=== PATIENT | male | born 1970 | race African-American/Black ===

== ENCOUNTER 2023-05-22 12:28 | Emergency (ER) | payer OTHER, SELFPAY ==
[2023-05-22 12:38] VITALS: BP 136/90; PULSE 74; RESP 20; TEMP 36.7; O2SAT 98
--- NOTE | 2023-05-22 12:45 | ED.SKABFB ---
HPI - Skin/Abscess/Foreign Bdy General Chief complaint: Skin/Abscess/Foreign Body Stated complaint: Rash Source: patient and RN notes reviewed History of Present Illness HPI narrative: 52 yo M presents to urgent care [facility] complaints of an itchy rash since yesterday. Pt states this started yesterday after clearing weeds off a fence yesterday. Pt states he first noticed it on his face and states it's on his right upper leg and bilateral arms. 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 Denies any fevers, chills, vomiting, chest pain, or SOB. Related Data Home Medications Medication Instructions Recorded Confirmed amlodipine 10 mg tablet 10 mg PO DAILY 05/22/23 05/22/23 atorvastatin 10 mg tablet 10 mg PO QHS 05/22/23 05/22/23 losartan 25 mg tablet 25 mg PO DAILY 05/22/23 05/22/23 rosuvastatin 5 mg tablet 5 mg PO DAILY 05/22/23 05/22/23 Allergies Allergy/AdvReac Type Severity Reaction Status Date / Time No Known Allergies Allergy Mild Verified 05/22/23 12:42 Review of Systems Review of Systems: CONSTITUTIONAL: Denies fever, chills, or sweats. EYES: Denies visual changes, redness, or discharge. ENT: Denies otalgia and sore throat CARDIOVASCULAR: Denies chest pain, palpitations, or edema. RESPIRATORY: Denies cough or dyspnea. GASTROINTESTINAL: Denies abdominal pain, nausea, vomiting, or diarrhea. GENITOURINARY: Denies dysuria or hematuria. SKIN: Itchy rash MUSCULOSKELETAL: Denies back pain, joint pain, or myalgia. NEUROLOGIC: Denies headache, numbness, or weakness. Pertinent positives per HPI. PMFSH Comments At the time of my signature, I reviewed and agree with the nursing past medical, surgical, social, and family history. There is no relevant family history pertinent to the patient complaint. Exam Narrative: GENERAL: This is a well-nourished, well-developed patient, in no apparent distress. HEAD: normocephalic, atraumatic. EYES: Sclera clear/white. Vision is grossly intact. EARS: External ears normal, auditory canals clear and without drainage. Hearing grossly intact. NOSE: External nose normal with no obvious nasal discharge, nares without redness, no rhinorrhea. THROAT: Mucous membranes moist, posterior pharynx clear. NECK: Neck supple, non-tender without lymphadenopathy, masses or thyromegaly. CARDIOVASCULAR: Regular rate RESPIRATORY: No respiratory distress SKIN: Erythemic papules and patches noted to bilateral face and bilateral forearms. NEURO: awake, alert, and oriented to person, place and time. There were no obvious focal neurologic abnormalities. Course Course Level of Care: Express Care Visit Vital Signs Vital signs: Reviewed MDM - Skin/Abscess/Foreign Bdy MDM Narrative Medical decision making narrative: Prevention is always better than treatment. Learn to identify poison tanya, oak, and sumac and avoid it. Wear long sleeves, long pants, shoes, and socks. If you touched the plant, try to keep your hands away from your eyes, mouth, and face. Wash the skin thoroughly with soap and cool water as soon as possible. Scrub under the fingernails with a brush to prevent spreading of the resin to other parts of the body by touching or scratching. Remember to wash any clothing with soap and hot water as the resin can persist for many months and cause further dermatitis. Use calamine lotion on the affect area. IF symptoms get worse to follow up with your primary care provider or seek ER visit if you developing difficulty breathing, weakness, dizziness. Differential Diagnosis Differential diagnosis: Likely viral exanthem, urticaria and contact dermatitis Critical Care Time Critical Care Time Critical Care Time: No Discharge Plan Discharge Clinical Impression: Contact dermatitis Qualifiers: Contact dermatitis type: unspecified Contact dermatitis trigger: unspecified trigger Qualified Code(s): L25.9 - Unspecified contact dermatitis, unspecified cause Patient Disposition: Home, Self-Care Condi
== END 2023-05-22 12:51 | disposition home or self-care (01) ==
PROVIDERS: Emergency Provider Nurse Practitioner Family
DX: L25.9 Unspecified contact dermatitis, unspecified cause (principal); E78.00 Pure hypercholesterolemia, unspecified; I10 Essential (primary) hypertension
CPT/HCPCS: 99213; G0463

== ENCOUNTER 2023-06-11 10:00 | Outpatient (CLI) | payer OTHER, SELFPAY ==
--- NOTE | 2023-06-11 10:49 | ECG_ITS ---
Measurements Intervals [place] Rate: 65 P: 45 MN: 179 QRS: 7 QRSD: 85 T: -4 QT: 358 QTc: 374 Interpretive Statements SINUS RHYTHM CANNOT RULE OUT SEPTAL INFARCT, AGE INDETERMINATE BORDERLINE ST-T WAVE ABNORMALITY- INFERIOR LEADS ABNORMAL ECG NO PREVIOUS ECG AVAILABLE FOR COMPARISON Electronically Signed On 06-11-2023 11:33:35 CDT by Miko Shabazz D.O.
[2023-06-11 11:23] LABS: Basophils Percent Auto 0.6 % (0.2-1.2); Eosinophils Absolute Auto 0.2 K/mm3 (0-0.3); Eosinophils Percent Auto 2.2 % (0-4.4); Hematocrit 48.8 % (42.0-52.0); Hemoglobin 16.2 g/dL (14.0-18.0); Immature Granulocyte Absolute 0.02 K/mm3 (0.00-0.031); Immature Granulocyte Percent A 0.3 % (0-0.5); Lymphocytes Absolute Auto 1.46 K/mm3 (0.9-3.2); Lymphocytes Percent Auto 21.1 % (18.3-44.2); Mean Corpuscular HGB Conc 33.2 g/dl (32-36); Mean Corpuscular Hemoglobin 28.3 pg (26-34); Mean Corpuscular Volume 85.2 fl (80-100); Mean Platelet Volume 9.7 fl (7.4-10.4); Monocytes Absolute Auto 0.4 K/mm3 (0.1-0.6); Monocytes Percent Auto 5.9 % (2.6-8.5); Neutrophils Absolute Auto 4.9 K/mm3 (1.3-6.7); Neutrophils Percent Auto 69.9 % (45.5-73.1); Platelet Count Result 258 k/mm3 (150-375); Red Blood Count 5.73 M/mm3 (4.6-6.20); Red Cell Distribution Width 12.7 % (11.5-14.5); White Blood Count 6.9 K/mm3 (4.5-10.0)
[2023-06-11 11:28] LABS: Anion Gap 6 mmol/L (8-16); Blood Urea Nitrogen 6 mg/dL (9-20); Carbon Dioxide 31 mmol/L (22-30); Chloride 103 mmol/L (98-107); Potassium 4.3 mmol/L (3.4-5.0); Prothrombin Time 13.2 Seconds (11.1-14.7); Sodium 140 mmol/L (137-145)
[2023-06-11 11:29] LABS: Alanine Aminotransferase 34 U/L (6-50); Albumin Level 4.3 g/dL (3.5-5.1); Alkaline Phosphatase 70 U/L (38-126); Aspartate Amino Transferase 29 U/L (17-59); Calcium 9.2 mg/dL (8.4-10.2); Estimated Glomerular Filt Rate > 60; Glucose 106 mg/dL (65-110); Partial Thromboplastin Time 27.3 SECONDS (22.3-36.8)
== END 2023-06-11 10:01 | disposition home or self-care (01) ==
LOC: ANHSURGERY 10:05
PROVIDERS: Visit Provider Urology
DX: Z01.812 Encounter for preprocedural laboratory examination (principal); Z01.810 Encounter for preprocedural cardiovascular examination; C61 Malignant neoplasm of prostate; R94.31 Abnormal electrocardiogram [ECG] [EKG]
CPT/HCPCS: 36415; 80053; 85025; 85610; 85730; 86850; 86900; 86901; 87086; 93005

== ENCOUNTER 2023-06-19 00:28 | Day surgery (SDC) | payer OTHER, SELFPAY ==
[2023-06-11 09:37] VITALS: BP 132/86; PULSE 62; RESP 20; TEMP 36.7; O2SAT 97; BMI 34.9
--- NOTE | 2023-06-11 09:38 | PC.NURSE ---
PRE-OP INSTRUCTIONS, PLEASE READ CAREFULLY Report to the Outpatient Waiting Room, entrance under the green pavilion located off [facility], at time _0600_ on date _06/19/23_. Planned Procedure Time: _0730_. PACK A SMALL OVERNIGHT BAG AND LEAVE IN THE CAR Time changes happen often and if your time is changed the preop area will call you the afternoon before. - You and your visitor will be asked to self-screen and do not enter if you have any COVID symptoms. - A mask is optional within the hospital at this time. -VISITING HOURS 8AM-8PM Patients may have clear liquids (water, carbonated beverages, clear teas, apple juice) until 3 hours prior to surgery (0430 AM) with a maximum of 20 ounces. - No food from midnight until time of surgery Take the following medications with a SIP of water the morning of surgery: _NONE_ DO NOT STOP ANY OF YOUR OTHER PRESCRIPTION MEDICATIONS PRIOR TO SURGERY ?EXCEPT THE FOLLOWING Medications to discontinue per physician ___NONE____, Date to take last dose Please no make-up, nail lao, hairspray, perfume, deodorant, or body powder the day of surgery. No jewelry (including any body piercings) or valuables the day of surgery, leave them at home. Please take a shower or bath the night before, or the morning of, surgery with an antibacterial soap. Wear comfortable, loose fitting clothing. - Jewelry must be removed prior to entering the operating room. Rings and piercings that are not removed may be cut off. - The hospital will not accept responsibility for valuables. - Please leave all valuables, including medications, at home the day of surgery. If you are going home after surgery, a licensed cement truck driver must drive you home. - NO public transportation without another adult if you receive anesthesia. - We recommend that an adult stay with you for 24 hours following discharge. - We also recommend that you do not drive, make important decision, drink alcoholic beverages, or take any drugs that were not prescribed by your health care provider for at least 24 hours after your discharge time. Follow any additional instructions given to you from your surgeon. If you or anyone in your household have experienced Covid symptoms in the past week, please notify your surgeon or the nurse liaison at the phone number below for possible testing. Instructions given to _PATIENT & SPOUSE_and asked if any additional questions and then verbalized understanding. Patient advised to call surgeon office or pre surgery nurse liaison [phone] if any additional questions.
[2023-06-19] VITALS (16 sets, daily range): BP systolic 126–194; BP diastolic 75–130; PULSE 65–94; RESP 14–20; TEMP 36.6–37.8; O2SAT 92–100
--- NOTE | 2023-06-19 06:43 | P.PNAN_ITS ---
Anes - Initial Pre Proc Eval Procedure: Operation Date: 06/19/23 07:30 Proposed Procedures p Robotic Assisted Nerve Sparing Prostatectomy, Possible Bilateral Pelvic Lymph Node Dissection - Miguel Ángel Delong MD Date/Time: 06/19/23 06:43 Surgeon: Miguel Ángel Delong MD Pre Op Diagnosis: prostate cancer Patient Data Age: 52 Gender: M Height: 1.75 m Weight: 107.4 kg Last Vital Signs Temp 36.7 C 06/11/23 09:37 Pulse 62 06/11/23 09:37 Resp 20 06/11/23 09:37 BP 132/86 06/11/23 09:37 Pulse Ox 97 06/11/23 09:37 O2 Del Method Room Air 06/11/23 09:37 Allergies Allergy/AdvReac Type Severity Reaction Status Date / Time No Known Allergies Allergy Mild Verified 06/19/23 07:02 Home Medications Medication Instructions Recorded Confirmed Type amlodipine 10 mg tablet 10 mg PO HS 05/22/23 06/19/23 History losartan 25 mg tablet 25 mg PO HS 05/22/23 06/19/23 History rosuvastatin 5 mg tablet (Crestor) 5 mg PO HS 05/22/23 06/19/23 History Patient hx anesthesia problems: none Family hx anesthesia problems: none Results Review: All pre-operative results and documents have been reviewed as part of the pre- operative evaluation. [facility] Past Medical History Medical History (Updated 06/20/23 @ 07:54 by Miguel Ángel Delong MD) Hyperlipidemia Hypertension Prostate cancer Social History Social History Smoking status: Never smoker Second hand tobacco smoke exposure: No Alcohol intake: current Alcohol use details: 4/WEEK OR ABOUT 20/MONTH Substance use: never Substance use type: does not use Living arrangements: with family Spiritual care concerns: No Anes - Eval Final PreProcedure Day of Procedure 06/19/23 06:43 Patient weight: obese Heart: regular rate and rhythm Lungs: clear to auscultation Airway: Mallampati scale class II Neurological: alert and oriented Last oral intake: >/= 8 hours ASA classification: III Emergent: no Anesthetic plan: proceed Anesthesia type and monitoring: general ETT and standard monitoring Results Review: All pre-operative results and documents have been reviewed as part of the pre- operative evaluation. Informed Consent: The patient's anesthetic plan and its attendant risks and benefits were discussed with the patient/family/POA. Questions were solicited and answers provided to the satisfaction of the patient/family/POA.
[2023-06-19] MEDS: LACTATED RINGERS 1,000 ML 30 ML IV CONT ×3 (06:58→13:32)
--- NOTE | 2023-06-19 07:18 | WPDHPUPDATE1 ---
History and Physical Update Update Date/Time: 06/19/23 07:18 History and Physical has been reviewed, including an updated exam of the patient. There are NO changes in the patient's condition. Risks, benefits, and alternatives have been discussed and questions answered. Patient agrees to proceed with procedure. Proceed with robotic assist nerve sparing prostatectomy with possible plnd
[2023-06-19] MEDS: ceFAZolin 2 GM/D5W 50 ML 2 GM/50 ML BAG IVPB (07:33)
[2023-06-19] MEDS: BUPivacaine HCL 0.5% 10 ML AMP 20 ML INFILTRATE (08:12)
[2023-06-19] MEDS: ceFAZolin SODIUM 1 GM VIAL IV PUSH (11:40)
--- NOTE | 2023-06-19 12:15 | P.OP_ITS ---
Procedure Note - Detailed Date of Procedure 06/19/23 Pre-op Diagnosis prostate cancer Post-op Diagnosis Same Procedure Performed Robotic assisted nerve-sparing prostatectomy with left pelvic lymph node dissection Surgeon Miguel Ángel Delong MD Anesthesia General Description of Procedure Patient is taken to the operative suite correctly identified. Once anesthesia was obtained was placed in the dorsal lithotomy position and prepped and draped usual sterile fashion. Supraumbilical incision was made. He does have a umbilical hernia. We did a cutdown entered the peritoneal cavity. Mancera trocar was then placed and secured. The abdomen was insufflated to 15 mmHg pressure. Camera was placed. Appropriate working ports were placed in their locations. The robot was docked after the patient was placed in steep Trendelenburg position. I should state that a 16 Indonesian Sullivan with 20 cc was placed in the balloon prior to initiating procedure. Posterior approach was then taken down. We did have to take down some adhesions of the sigmoid colon and the appendix. Seminal vesicles were dissected down their entirety. Vas is were transected. Plane between the prostate and rectum was developed. Bladder was then taken down in a standard fashion. Space of Retzius was developed. Puboprostatic were incised. Dorsal venous complex was isolated using 0 Vicryl and secured to the pubic bone. Bladder neck sparing procedure was then performed. Bilateral nerve-sparing was also performed. Pedicles were clipped. Urethra was transected after the dorsal venous complex was transected. He had a nice urethral stump. Specimen was placed in an Endo-Catch bag. Left pelvic needed lymph node dissection was then performed with the standard boundaries being the obturator nerve, external iliac vein, Azam's ligament, and bifurcation of the vessels. Clips were placed proximally and distally. Specimen was also placed in an Endo-Catch bag. A Norberto stitch was then placed. Bladder neck was then anastomosed to the urethral stump. V lock suture was used in a running fashion. ANSELMO drain was placed through the 4th arm port site. Surgicel was placed in left obturator fossa. All lap count needle count sponge counts were correct. Robot was undocked. Specimen was then brought out through the midline incision. Midline incision was closed using 0 Vicryl in running fashion. Subcuticular stitches were placed after the skin was anesthetized with 1% lidocaine. Patient tolerated procedure well without any complications is taken recovery stable condition. Please send a copy of this [employer] to my office Estimated Blood Loss 150 Drains Yes Packing No Pathology Yes Complications No immediate complications Condition Stable Disposition PACU
[2023-06-19] MEDS: fentaNYL CITRATE INJ (*CRX) 100 MCG/2 ML VIAL 25 MCG IV PUSH ×4 (12:48→14:03)
[2023-06-19] MEDS: MEPERIDINE HCL INJ (*CRX) 50 MG/ML AMPUL 12.5 MG IV PUSH (13:09)
[2023-06-19] MEDS: oxyBUTYnin CHLORIDE 5 MG TABLET PO (13:37)
[2023-06-19] MEDS: HYDROcodone/acetaminophen (*CRX) 5-325 MG TABLET 2 TAB PO ×2 (15:10→21:15)
[2023-06-19] MEDS: LACTATED RINGERS 1,000 ML 125 ML IV CONT (16:15)
[2023-06-19] MEDS: amLODIPine BESYLATE 5 MG TABLET 10 MG PO (21:19)
--- NOTE | 2023-06-19 21:53 | PC.NURSE ---
Late administration of losartan and rosuvastatin due to lack of medications provided by pharmacy.
[2023-06-19] MEDS: LOSARTAN POTASSIUM 25 MG TABLET PO (22:08)
[2023-06-19] MEDS: ROSUVASTATIN 5 MG TABLET PO (22:09)
[2023-06-20] MEDS: LACTATED RINGERS 1,000 ML 125 ML IV CONT ×2 (00:19→08:26)
[2023-06-20 04:04] VITALS: BP 135/78; PULSE 74; RESP 14; TEMP 37; O2SAT 96
[2023-06-20] MEDS: HYDROcodone/acetaminophen (*CRX) 5-325 MG TABLET 2 TAB PO ×2 (05:06→12:02)
[2023-06-20 06:09] LABS: Hematocrit 45.8 % (42.0-52.0); Hemoglobin 15.1 g/dL (14.0-18.0)
--- NOTE | 2023-06-20 07:27 | WPDANESPN ---
Anes - Prog Note Post-Op Date/Time: 06/20/23 07:27 Cardiovascular status: normal Respiratory status: normal Airway patency: baseline Mental status: baseline Post-Op hydration status: normal Vital Signs: Last Vital Signs Temp 98.6 F 06/20/23 04:04 Pulse 74 06/20/23 04:04 Resp 14 06/20/23 04:04 BP 135/78 06/20/23 04:04 Pulse Ox 96 06/20/23 04:04 O2 Del Method Room Air 06/19/23 14:15 O2 Flow Rate 8 06/19/23 13:15 Pain Score (VAS): 0/10 I/O: Intake & Output 06/19/23 06/19/23 06/20/23 15:59 23:59 07:59 Intake Total 8287 376 9537 Output Total 255 1050 2580 Balance 1345 -440 -518 06/20/23 05:34 Hgb Pending Hct Pending Post-procedural complaints: none Patient Feedback: Patient satisfied with anesthetic care.
--- NOTE | 2023-06-20 07:52 | WPDUROPN2 ---
Progress Note: A&P Assessment and Plan (1) Adenocarcinoma of prostate: Code(s): C61 - Malignant neoplasm of prostate Status: Acute Assessment and Plan: Increase activity today. Monitor ANSELMO output. Monitor temperature. IF Doing well later today may consider discharge with Sullivan catheter. Subjective Subjective Date/Time Seen: 06/20/23 07:52 Post Op day: 1 (Robotic assisted nerve-sparing prostatectomy with left pelvic lymph node dissection) Principal diagnosis: Adenocarcinoma prostate Interval history: No major complaints this morning. Doing well. However low grade temp of 100.4 Review of Systems Review of Systems: All systems reviewed & are unremarkable except as noted in HPI and below Exam Const: General: cooperative and comfortable Chest: Chest palpation & inspection: normal inspection of the chest Resp: Effort & Inspection: normal respiratory effort Cardio: Rate: regular rate Rhythm: regular rhythm GI: Inspection: normal to inspection and non-distended GI Palp: Yes Soft to palpation Urinary Catheter: Urinary Catheter: patent and draining and urine clear Objective Data Vital Signs Vital Signs: Vital Signs - 24 hr 06/19/23 12:30 06/19/23 12:45 06/19/23 13:00 Temperature 36.9 C Pulse Rate 77 86 93 Respiratory Rate 19 20 20 Blood Pressure 128/75 182/130 H 194/95 H Pulse Oximetry 92 98 100 Oxygen Delivery Simple Face Mask Simple Face Mask Simple Face Mask Oxygen Flow Rate 8 8 8 06/19/23 13:15 06/19/23 13:30 06/19/23 13:45 Temperature Pulse Rate 91 90 91 Respiratory Rate 17 18 14 Blood Pressure 176/92 H 164/96 H 159/86 H Pulse Oximetry 100 100 100 Oxygen Delivery Simple Face Mask Room Air Room Air Oxygen Flow Rate 8 06/19/23 14:00 06/19/23 14:15 06/19/23 14:19 Temperature 37.3 C Pulse Rate 93 92 85 Respiratory Rate 18 18 18 Blood Pressure 146/80 H 134/80 154/88 H Pulse Oximetry 96 96 94 Oxygen Delivery Room Air Room Air Oxygen Flow Rate 06/19/23 14:34 06/19/23 15:04 06/19/23 16:04 Temperature 37.1 C 37.3 C 37.2 C Pulse Rate 94 89 91 Respiratory Rate 16 18 16 Blood Pressure 149/84 H 175/92 H 160/98 H Pulse Oximetry 100 98 97 Oxygen Delivery Oxygen Flow Rate 06/19/23 18:39 06/19/23 20:04 06/19/23 23:37 Temperature 37.1 C 37.3 C 37.8 C H Pulse Rate 80 71 Respiratory Rate 16 14 Blood Pressure 146/83 H 140/79 Pulse Oximetry 97 95 Oxygen Delivery Oxygen Flow Rate 06/20/23 04:04 Temperature 37.0 C Pulse Rate 74 Respiratory Rate 14 Blood Pressure 135/78 Pulse Oximetry 96 Oxygen Delivery Oxygen Flow Rate Intake/Output Intake/Output: Intake & Output 06/17/23 06/18/23 06/19/23 06/20/23 23:59 23:59 23:59 23:59 Intake Total 2210 2062 Output Total 1305 2580 Balance 905 -518 Meds/Results Medications: Active Medications Generic Name Dose Route Start Last Admin Trade Name Freq PRN Reason Stop Dose Admin Hydrocodone Bitart/Acetaminophen 2 tab 06/19/23 14:19 06/20/23 05:06 Hydrocodone/Acetaminophen (*Crx) 5-325 Mg Tablet PO 2 tab Q6H PRN Administration Pain Rated 4-6 Amlodipine Besylate 10 mg 06/19/23 21:00 06/19/23 21:19 Amlodipine Besylate 5 Mg Tablet PO 10 mg HS CLARK Administration Hyoscyamine 0.125 mg 06/19/23 14:19 Hyoscyamine Sulfate 0.125 Mg Tablet SUBLINGUAL Q4H PRN Bladder Spasm Lactated Ringer's 1,000 mls @ 125 mls/hr 06/19/23 14:19 06/20/23 00:19 Lr - Lactated Ringers Iv IV CONT 125 mls/hr .Q8H CLARK Administration Ketorolac Tromethamine 30 mg 06/19/23 14:19 Ketorolac 30 Mg/Ml Vial (*Bkc) IV PUSH 06/20/23 14:18 Q6H PRN Pain Rated 4-6 Levofloxacin 500 mg 06/20/23 09:00 Levofloxacin 500 Mg Tablet PO DAILY CLARK Losartan Potassium 25 mg 06/19/23 21:00 06/19/23 22:08 Losartan Potassium 25 Mg Tablet PO 25 mg HS CLARK Administration Morphine Sulfate 2 mg 06/19/23 14:19 Morphine Sulfate (*Crx) 2
[2023-06-20 08:04] VITALS: BP 147/91; PULSE 86; RESP 18; TEMP 36.8; O2SAT 100
[2023-06-20] MEDS: levoFLOXacin 500 MG TABLET PO (08:58)
[2023-06-20 12:04] VITALS: BP 139/87; PULSE 75; RESP 14; TEMP 37.3; O2SAT 97
--- NOTE | 2023-06-20 14:09 | PCCCNOTE ---
On 06/20/23, the student, [Emmanuelle Bustillo ], provided care and [facility] on this patient. I have reviewed the student's documentation and agree with the findings.
== END 2023-06-20 15:50 | disposition home or self-care (01) ==
LOC: ANHSURGERY 05:54 → ANH3MEDSUR 14:40
PROVIDERS: Visit Provider Urology
PROC: 0VT04ZZ Resection of Prostate, Percutaneous Endoscopic Approach (ICD-10-PCS; CPT 55867; principal; 2023-06-19 07:30)
DX: C61 Malignant neoplasm of prostate (principal); I10 Essential (primary) hypertension; E78.5 Hyperlipidemia, unspecified; E66.9 Obesity, unspecified; Z68.34 Body mass index [BMI] 34.0-34.9, adult
CPT/HCPCS: 55866; 38571; S2900; 36415; 80053; 85014; 85018; 85025; 85610; 85730; 86850; 86900; 86901; 87086; 88309; 88342; 93005; A9270; J0690; J1100; J1170; J2175; J2250; J2405; J2704; J3010; J7030; J7120

== ENCOUNTER 2023-06-27 09:38 | Outpatient (CLI) | payer OTHER, SELFPAY ==
--- NOTE | ~2023-06-27 | XR_ITS ---
EXAMINATION: CYSTOGRAM DATE: 06/27/2023 10:34 INDICATION: Status post prostatectomy for prostate cancer TECHNIQUE: Initial transistor tester radiograph of the pelvis was performed. There was retrograde administration of 100 mL of Omnipaque 350 contrast mixed with 250 mL saline into patient's existing Sullivan catheter. Fluoroscopic images of the pelvis were obtained. A post-void image was also performed. Fluoroscopy e xposure time was 0.5 minutes. Total DAP was 10.8 Gycm^2. A total of 13 fluoroscopic images were recor ded. FINDINGS: Contrast fills the bladder which appears normal with no urothelial irregularities or contour abnormal ities. No evident extraluminal contrast extravasation to suggest bladder leak. No evident vesicourete ral reflux. IMPRESSION: 1. Unremarkable cystogram with no extraluminal contrast extravasation. Reviewed, dictated and finalized at location A.
== END 2023-06-27 09:39 | disposition home or self-care (01) ==
LOC: ANHIMG 09:44
PROVIDERS: Visit Provider Urology
DX: C61 Malignant neoplasm of prostate (principal)
CPT/HCPCS: 51600; 74430; Q9967

== ENCOUNTER 2024-09-04 16:11 | Emergency (ER) | payer OTHER, SELFPAY ==
[2024-09-04 16:20] VITALS: BP 140/93; PULSE 70; RESP 20; TEMP 36.9; O2SAT 100
--- NOTE | 2024-09-04 17:07 | ED.GENADULT ---
HPI - General Adult General Chief complaint: Upper Respiratory Infection Stated complaint: cold symptoms Time Seen by Provider: 09/04/24 17:07 Related Data Home Medications Medication Instructions Recorded Confirmed amlodipine 10 mg tablet 10 mg PO 05/22/23 06/19/23 losartan 25 mg tablet 25 mg PO 05/22/23 06/19/23 rosuvastatin 5 mg tablet (Crestor) 5 mg PO 05/22/23 06/19/23 Allergies Allergy/AdvReac Type Severity Reaction Status Date / Time No Known Allergies Allergy Mild Verified 06/19/23 07:02 [facility] Past Medical History Medical History (Updated 06/20/23 @ 07:54 by Miguel Ángel Delong MD) Hyperlipidemia Hypertension Prostate cancer Social History Social History Smoking status: Never smoker Second hand tobacco smoke exposure: No Alcohol intake: current Alcohol use details: 4/WEEK OR ABOUT 20/MONTH Substance use: never Substance use type: does not use Living arrangements: with family Spiritual care concerns: No Course Vital Signs Vital signs: Vital Signs Temperature 36.9 C 09/04/24 16:20 Pulse Rate 70 09/04/24 16:20 Respiratory Rate 20 09/04/24 16:20 Blood Pressure 140/93 H 09/04/24 16:20 Pulse Oximetry 100 09/04/24 16:20 Oxygen Delivery Room Air 09/04/24 16:20 Temperature 36.9 C 09/04/24 16:20 Pulse Rate 70 09/04/24 16:20 Respiratory Rate 20 09/04/24 16:20 Blood Pressure 140/93 H 09/04/24 16:20 Pulse Oximetry 100 09/04/24 16:20 Oxygen Delivery Room Air 09/04/24 16:20 Medical Decision Making Vital Signs Vital Signs: Vital Signs Temperature 36.9 C 09/04/24 16:20 Pulse Rate 70 09/04/24 16:20 Respiratory Rate 20 09/04/24 16:20 Blood Pressure 140/93 H 09/04/24 16:20 Pulse Oximetry 100 09/04/24 16:20 Oxygen Delivery Room Air 09/04/24 16:20 Temperature 36.9 C 09/04/24 16:20 Pulse Rate 70 09/04/24 16:20 Respiratory Rate 20 09/04/24 16:20 Blood Pressure 140/93 H 09/04/24 16:20 Pulse Oximetry 100 09/04/24 16:20 Oxygen Delivery Room Air 09/04/24 16:20 Discharge Plan Discharge Prescriptions: No Action rosuvastatin [Crestor] 5 mg tablet 5 mg PO HS Patient Comments: TAKES AT NIGHT amlodipine 10 mg tablet 10 mg PO HS Patient Comments: TAKES AT NIGHT losartan 25 mg tablet 25 mg PO HS Patient Comments: TAKES AT NIGHT Follow-up/Referrals: Meena,Alexus Chan [Other]
== END 2024-09-04 17:10 | disposition left against medical advice (07) ==
PROVIDERS: Emergency Provider Nurse Practitioner Family
DX: Z53.21 Procedure and treatment not carried out due to patient leaving prior to being seen by health care provider (principal)
CPT/HCPCS: 99199

== ENCOUNTER 2025-01-23 08:50 | Emergency (ER) | payer OTHER, SELFPAY ==
[2025-01-23 08:58] VITALS: BP 135/86; PULSE 93; RESP 20; TEMP 39.2; O2SAT 97
[2025-01-23 09:43] VITALS: TEMP 39.2
[2025-01-23] MEDS: ACETAMINOPHEN 500 MG TABLET 1000 MG PO (09:43)
[2025-01-23 09:44] LABS: EDCOVIDSCREEN Negative (Negative); EDINFLUASCREEN Positive (Negative); EDINFLUBSCREEN Negative (Negative)
--- NOTE | 2025-01-23 09:57 | ED.URI ---
HPI - URI/Sore Throat General Chief Complaint: Upper Respiratory Infection Stated Complaint: cold/flu symptoms Time Seen by Provider: 01/23/25 09:58 Source: patient, RN notes reviewed and old records reviewed Mode of arrival: ambulatory Limitations: no limitations History of Present Illness HPI Narrative: 54-year-old male presents to the [facility] with complaints of flu-like symptoms. States that he has had fever, body aches, cough and sore throat for 4 days. Has tried multiple [id number] products with minimal relief. Reports that he did take ibuprofen today. Patient is febrile on arrival. Onset (ago): day(s) (4) Related Data Home Medications ?Medication ?Instructions ?Recorded ?Confirmed ?Last Taken ?Type amlodipine 10 mg tablet 10 mg PO HS 05/22/23 06/19/23 06/18/23 History losartan 25 mg tablet 25 mg PO HS 05/22/23 06/19/23 06/18/23 History rosuvastatin 5 mg tablet (Crestor) 5 mg PO HS 05/22/23 06/19/23 06/18/23 History Allergies Allergy/AdvReac Type Severity Reaction Status Date / Time No Known Allergies Allergy Mild Verified 01/23/25 09:39 Review of Systems Review of Systems: All systems reviewed & are unremarkable except as noted in HPI and below Constitutional: Constitutional: Reports as per HPI, Reports body ache(s), Reports fatigue and Reports fever(s) ENT: Reports as per HPI and Reports sore throat Cardiovascular: Cardiovascular: Reports no additional cardiovascular complaints, Denies chest pain and Denies dyspnea Respiratory: Respiratory: Reports no additional respiratory complaints, Denies chest congestion, Denies cough and Denies dyspnea Musculoskeletal: Musculoskeletal: Reports no additional musculoskeletal complaints Integumentary/Breasts: Skin/Breast: Reports system reviewed and no additional complaints, except as docu PMFSH Past Medical History Medical History Prostate cancer Hyperlipidemia Hypertension Social History Social History Smoking status: Never smoker Second hand tobacco smoke exposure: No Alcohol intake: current Alcohol use details: 4/WEEK OR ABOUT 20/MONTH Substance use: never Substance use type: does not use Living arrangements: with family Spiritual care concerns: No Comments At the time of my signature, I reviewed and agree with the nursing past medical, surgical, social, and family history. There is no relevant family history pertinent to the patient complaint. Exam Const: General: cooperative, no acute distress, well developed, alert, tired appearing, uncomfortable and well nourished Nutritional Appearance: well nourished Orientation/consciousness: patient oriented x3 Limitations: no limitations HENMT: Head: normal to inspection Eyes: General: appearance normal, both eyes and all related structures Alignment and Position: alignment normal Neck: Neck: normal visual inspection, full ROM, no lymphadenopathy and no meningeal signs Chest: Chest palpation & inspection: normal inspection of the chest Resp: Effort & Inspection: normal respiratory effort and able to speak in complete sentences Auscultation: clear to auscultation bilaterally, no crackles, no rales, no rhonchi and no wheezes Cardio: Rate: regular rate Skin: General skin exam: normal color and no rashes or lesions noted Neuro: General: patient oriented x3, gait normal, moves all extremities and no meningeal signs Cognition (Neuro): normal cognition Speech: normal speech Gait exam (Neuro): Normal gait present Extrem: General: normal to inspection, full ROM, capillary refill normal and normal gait Psych: Appearance: grossly normal and well kempt Mental Status: mental status grossly normal Speech and movement: Normal speech and movement present and Clear speech present Affect: normal affect Attitude: cooperative Course Course Level of Care: Express Care Visit Vital Signs Vital signs: Vital Signs Temperature 102.5 F H 01/23/25 08:58 Pulse Rate 93 01/23/25 08:58 Respiratory Rate 20 01/23/25 08:58 Blood Pressure 135/86 01/23/25 08:58 Pulse Oximetry 97 01/23/25 08:58 Oxygen Delivery Room Air 01/23/25 08:58 Temperature 102.5 F H 01/23/25 09:43 Pulse Rate 93 01/23/25 08:58 Respiratory Rate 20 01/23/25 08:58 Blood Pressure 135/86 01/23/25 08:58 Pulse Oximetry 97 01/23/25 08:58 Oxygen Delivery Room Air 01/23/25 08:58 Reviewed MDM - URI/Sore Throat MDM Narrative Medical decision making narrative: Patient sitting in exam room. Patient is mildly uncomfortable in appearance. Patient is flu A positive. Patient was given Tylenol in clinic. Discussed signs and symptoms of proceed to the emergency room as well as current treatment. Patient verbalized understanding patient appropriate for outpatient treatment and follow-up Discharge instructions reviewed with patient, as well as provided in writing per nursing staff. The instructions also include specific and strict return/GO TO THE ER as well as f/u information. All questions have been answered, and the patient deny any further questions with discharge and discharge plan. Some parts of this dictation were generated by voice recognition software and may contain typographical and/or grammatical inaccuracies. Differential Diagnosis Differential diagnosis: Likely upper respiratory infection, otitis media, sinusitis, viral infection, bronchitis and influenza Lab Data Labs: Lab Results 01/23/25 Range/Units 09:42 POC Influenza A Ag Positive (Negative) POC Influenza B Ag Negative (Negative) POC SARS CoV-2 Ag Negative (Negative) Reviewed Critical Care Time Critical Care Time Critical Care Time: No Discharge Plan Discharge Clinical Impression: Influenza A Patient Disposition: Home, Self-Care Condition: Stable Instructions: Antibiotic Form, Influenza (ED) Additional Instructions: Your rapid COVID test were negative Your rapid flu test was positive for influenza A Your symptoms are due to a viral illness, which is not treated with antibiotics. Typically viral infections last 7-10 days, can linger for couple of weeks. It is very important to treat your symptoms. Drink plenty of water, Gatorade, Pedialyte, ice pops or Jell-O. -Alternate Tylenol and Motrin per package directions for fever or pain. You can alternate every 4 hours -Antihistamine medication such as Zyrtec/Claritin/Selina during the day can help improve symptoms. -doing daily nasal irrigations can help relieve pressure your sinuses. Things like a Neti pot -Use Flonase twice a day for 5 days then daily to help reduce the inflammation and dry up your sinuses. -You can also use Mucinex. Be sure to drink plenty of water with this medication at least 8 ounces with every dose and it is important to drink 8 to 10 glasses of water per day. Water is a natural decongestant -Eat and drink things that are easy to swallow, like tea or soup, or popsicles. -Oral rinses such as: Salt water gargles and/or may use topical anesthetic (eg. Chloraseptic spray) or lozenges to relieve dryness or throat pain). -Frequent hand washing or hand assembly manager is one of the best ways to prevent spread of infection. -Using a vaporizer or humidifier at night will also help thin secretions and help with coughing up phlegm. -Follow up with primary care provider in 7-10 days if condition is not improving - For new or worsening symptoms go directly to the nearest ER Patient Language: Hungarian Prescriptions: No Action rosuvastatin [Crestor] 5 mg tablet 5 mg PO HS Patient Comments: TAKES AT NIGHT amlodipine 10 mg tablet 10 mg PO HS Patient Comments: TAKES AT NIGHT losartan 25 mg tablet 25 mg PO HS Patient Comments: TAKES AT NIGHT Follow-up/Referrals: PHYSICIAN NOT ON STAFF,NONSTAFF [Primary Care Provider] - Stand Alone Forms: Work/School Release IP Time of Disposition: 10:04
== END 2025-01-23 10:12 | disposition home or self-care (01) ==
PROVIDERS: Emergency Provider Nurse Practitioner
DX: J10.1 Influenza due to other identified influenza virus with other respiratory manifestations (principal); Z20.822 Contact with and (suspected) exposure to COVID-19; I10 Essential (primary) hypertension; E78.5 Hyperlipidemia, unspecified; Z85.46 Personal history of malignant neoplasm of prostate
CPT/HCPCS: 87426; 87804; 99212; A9270; G0463